=== PATIENT | male | born 1990 | race Caucasian/White ===

== ENCOUNTER → 2019-07-27 12:01 | Outpatient (BNVA) | payer OTHER, SELFPAY | PROVIDERS: Family Provider Nurse Practitioner; PCP Nurse Practitioner; Visit Provider Nurse Practitioner Family | DX: S50.01XA Contusion of right elbow, initial encounter (principal); X58.XXXA Exposure to other specified factors, initial encounter | CPT/HCPCS: 73080 ==

== ENCOUNTER → 2021-05-19 14:15 | Outpatient (BNVA) | payer OTHER, SELFPAY | PROVIDERS: Family Provider Nurse Practitioner; PCP Nurse Practitioner; Visit Provider Nurse Practitioner Family | DX: J02.9 Acute pharyngitis, unspecified (principal); M25.561 Pain in right knee; G89.29 Other chronic pain | CPT/HCPCS: 87071; 87880 ==

== ENCOUNTER 2021-06-01 10:53 | Outpatient (CLI) | payer OTHER, SELFPAY ==
--- NOTE | 2021-06-01 11:00 | MR_ITS ---
WS: [id number] MRI RIGHT KNEE NONCONTRAST TECHNIQUE: Axial PD, coronal PD fat sat, coronal PD, sagittal PD, and sagittal PD fat-sat images obta ined. CLINICAL INFORMATION: M25.561 - Pain in right knee COMPARISON: None. FINDINGS: Mild chronic thinning of the ACL with mucoid degeneration. No acute appearing ACL tears. Normal PCL. Distal quadriceps and patella tendons are intact. Slightly hypertrophic patella. No prepatellar soft tissue edema. Tiny horizontal tear involving the posterior horn medial meniscus extending to the catrina cular surface. Normal lateral meniscus. Normal medial and lateral collateral ligaments. Normal patella. Mild chondromalacia patella. No subch ondral edema. Normal medial and lateral patellar retinaculum. Normal popliteal fossa. MR/MR knee RT wo con* [id number] IMPRESSION: 1. Mild chronic thinning of the ACL with mucoid degeneration. No acute appeari ng ACL tears. Normal PCL. 2. Tiny horizontal tear involving the posterior horn medial meniscus extending to the articular surface. 3. Hypertrophic patella. Mild chondromalacia patella. No subchondral edema. 4. Normal medial and lateral collateral ligaments. 5. Normal bone marrow signal. No evidence of bony contusion. Outbridge grading: grade II: blister-like swelling/fraying of articular cartila ge extending to surface
== END 2021-06-01 10:54 | disposition home or self-care (01) ==
PROVIDERS: PCP Nurse Practitioner; Visit Provider Nurse Practitioner Family
DX: S83.241A Other tear of medial meniscus, current injury, right knee, initial encounter (principal); X58.XXXA Exposure to other specified factors, initial encounter; M22.41 Chondromalacia patellae, right knee
CPT/HCPCS: 73721

== ENCOUNTER 2021-07-08 10:22 | Day surgery (SDC) | payer OTHER, SELFPAY ==
[2021-07-06 14:49] VITALS: BMI 26.7
[2021-07-08] VITALS (9 sets, daily range): BP systolic 89–119; BP diastolic 46–78; PULSE 50–84; RESP 14–18; TEMP 36.2–36.7; O2SAT 92–98
[2021-07-08] MEDS: sodium chloride 0.9% 1,000 ML 30 ML IV (11:45)
--- NOTE | 2021-07-08 12:20 | ANES.PREANE2 ---
Pre-Anesthetic Assessment Height/Weight: Height 1.75 m Weight 82.1 kg Temp Pulse Resp BP Pulse Ox 97.5 F L 58 L 16 118/74 97 07/08/21 11:30 07/08/21 11:30 07/08/21 11:30 07/08/21 11:30 07/08/21 11:30 Preop Diagnosis: Medial lateral meniscal tear right knee Operation Date: 07/08/21 13:10 Proposed Procedures p right knee arthroscopy with meniscectomy 75654/s83.206a(Right) - Trevon Trujillo MD Familial anesthetic complications: None Was Beta Windy taken within 24 hours: N/A Was Clonidine taken within 24 hours: N/A Last intake: Intake Last Liquid Date 07/07/21 Last Liquid Time 22:00 Last Solid Date 07/07/21 Last Solid Time 17:30 Social Tobacco and No alcohol Exam alert, oriented x 3 and regular rate & rhythm Airway Submandibular: within normal limits Cervical ROM: within normal limits Mallampati: Class II Dentition: false Anesthetic Plan ASA status: 2 Anesthesia: General Medications/Allergies Home Medications Medication Instructions Recorded Confirmed Last Taken Type Aleve 220 mg PO BID PRN 07/08/21 07/08/21 07/07/21 07:00 History Allergies Allergy/AdvReac Type Severity Reaction Status Date / Time mushroom AdvReac rash Verified 06/29/21 09:00 Current Medications Generic Name Dose Route Start Last Admin Trade Name Freq PRN Reason Stop Dose Admin Sodium Chloride 1,000 mls @ 30 mls/hr 07/08/21 11:30 07/08/21 11:45 Sodium Chloride 0.9% IV 07/09/21 11:29 30 mls/hr .Q24H ALEJANDRA Administration PFSH Anesthesia Social History Smoking and tobacco status: current every day smoker Data Anesthesia Cardiac Studies: No Data to Display
--- NOTE | 2021-07-08 14:13 | W.PM.OPSUD ---
Surgery/Procedure H&P Update DATE OF PROCEDURE: July 08, 2021 DATE H&P PERFORMED: 06/30/21 H&P UPDATE INFORMATION: I have reviewed H&P completed within last 30 days PREOP DIAGNOSIS: Medial lateral meniscal tear right knee PLANNED PROCEDURE: Operation Date: 07/08/21 13:10 Proposed Procedures p right knee arthroscopy with meniscectomy 51325/s83.206a(Right) - Trevon Trujillo MD
[2021-07-08] MEDS: morphine 4 mg/mL SDV 1 mL 8 MG XX (15:04)
--- NOTE | 2021-07-08 15:20 | P.OP_ITS ---
Operative Report Date of procedure: July 08, 2021 Pre-op diagnosis: Preop Diagnosis Medial and lateral meniscal tear right knee Post-op diagnosis: Chondromalacia lateral facet patella Procedure done: Arthroscopic chondroplasty lateral facet patella Pathology: none sent Surgeon: Trevon Trujillo Anesthesia: General Estimated blood loss (mL): 2 Findings: The patient is knee was examined under anesthesia with no cruciate or collateral ligament identified and normal patellar tracking. Intra-articularly the medial and lateral menisci were noted to be intact and free of tearing. The femoral condyles and tibial plateau were free of chondromalacia. There were noted to be some flaps and fissures over the lateral facet of the patella corresponding with multiple small loose bodies. Condition: stable Disposition: PACU Procedure: Daniele was taken the operating room and given a general anesthesia. The knee was examined with no cruciate or collateral being laxity identified. He was given 2 g of Ancef. He is prepped and draped in the supine position with a tourniquet on the right thigh. The tourniquet was never inflated. A timeout was performed. The knee was entered through standard inferior medial and anterior lateral portal. The diagnostic portion of the arthroscopy was performed. The medial lateral menisci were carefully probed and no significant tearing identified. Chondral surfaces of the medial lateral compartment appeared to be healthy. The patella was carefully inspected where there was noted to be irregularity fibrillation and fraying over the lateral facet of the patella. An incisor shaver was introduced through the medial portal and light debridement accomplished of the patella. This was then followed with a [employer] probe utilizing the lateral facet cartilage. Ultimately the area of missing/debrided cartilage was thought to involve no more than 30% of the henning lar cartilage thickness of the lateral facet. The knee was irrigated with saline. Portals were closed with 3-0 Prolene. General dressings were applied. The patient was extubated and taken to recovery room in stable condition.
--- NOTE | 2021-07-08 16:55 | ANE.PACU2 ---
Inpatient post-anesthesia follow up: Airway intact: Yes Vital signs: Temperature 97.9 F Pulse Rate 58 Respiratory Rate 14 Blood Pressure 111/66 Pulse Oximetry 98 Oxygen Delivery Me thod Room Air Oxygen Flow Rate 6 Fraction of Inspir ed Oxygen Hydration adequate: Yes Nausea and vomiting: No Pain level: 2 Mental status: Baseline
--- NOTE | 2021-07-09 11:25 | W.PM.OPSUD ---
Surgery/Procedure H&P Update DATE OF PROCEDURE: July 08, 2021 DATE H&P PERFORMED: 06/30/21 H&P UPDATE INFORMATION: I have reviewed H&P completed within last 30 days PREOP DIAGNOSIS: Medial lateral meniscal tear right knee PLANNED PROCEDURE: Operation Date: 07/08/21 13:10 Proposed Procedures p right knee arthroscopy with meniscectomy 89012/s83.206a(Right) - Trevon Trujillo MD
== END 2021-07-08 16:55 | disposition home or self-care (01) ==
PROVIDERS: PCP Nurse Practitioner; Visit Provider Orthopaedic Surgery
PROC: (CPT 29870; principal; 2021-07-08 13:00)
DX: S83.281A Other tear of lateral meniscus, current injury, right knee, initial encounter (principal); X50.1XXA Overexertion from prolonged static or awkward postures, initial encounter; Y99.0 Civilian activity done for income or pay; M22.41 Chondromalacia patellae, right knee; F17.210 Nicotine dependence, cigarettes, uncomplicated
CPT/HCPCS: 29877; J0690; J1100; J2270; J2405; J2704; J2710; J3010; J3490; J7030

== ENCOUNTER 2024-04-06 18:39 | Emergency (ER) | payer OTHER, SELFPAY ==
[2024-04-06 18:55] VITALS: BP 111/71; PULSE 69; RESP 15; TEMP 36.5; O2SAT 98; BMI 28.0
[2024-04-06 19:35] LABS: Basophils # 0.1 10^3/uL (0.0-0.1); Basophils % 0.9 %; Eosinophils # 0.3 10^3/uL (0.0-0.8); Eosinophils % 2.9 %; Hematocrit 44.9 % (37-53); Lymphocytes # 3.6 10^3/uL (0.8-4.8); Mean Corpuscular Hemoglobin 30.3 pg (27-33); Mean Corpuscular Volume 91.8 fl (82-101); Mean Platelet Volume 10.1 fL (7.4-10.4); Monocytes # 0.7 10^3/uL (0.2-0.9); Monocytes % 7.5 %; Neutrophils # 4.81 10^3/uL (1.8-7.7); Neutrophils % 50.6 %; Nucleated Red Blood Cells % 0 %; Platelet Count 278 10^3/cmm (157-399); Red Blood Count 4.89 10^6/uL (3.85-5.65); White Blood Count 9.52 10^3/uL (3.29-11.43)
--- NOTE | 2024-04-06 19:48 | CTR_ITS ---
PROCEDURE INFORMATION: Exam: CT Abdomen And Pelvis With Contrast Exam date and time: 04/06/2024 8:07 PM Age: 34 years old Clinical indication: Abdominal pain; Patient HX: C/O epigastric pain x several days; Additional info: Abd pain TECHNIQUE: Imaging protocol: Computed tomography of the abdomen and pelvis with contrast. Radiation optimization: All CT scans at this facility use at least one of these dose optimization techniques: automated exposure control; mA and/or kV adjustment per patient size (includes targeted exams where dose is matched to clinical indication); or iterative reconstruction. Contrast material: OMNI 350; Contrast volume: 100 ml; Contrast route: INTRAVENOUS (IV); COMPARISON: No relevant prior studies available. RADIATION DOSE METRICS: Total DLP (mGy-cm): 630.93 FINDINGS: Lungs: Lung bases are clear. Liver: There is no focal abnormality within the liver. Gallbladder and biliary ducts: The gallbladder is normal. There is no common bile duct dilation. Pancreas: The pancreas is normal. Spleen: The spleen is normal. Adrenal glands: The adrenal glands are normal. Kidneys and ureters: The kidneys are normal. There is no evidence of hydronephrosis. There is no evidence of renal or ureteral calcifications. Stomach and bowel: Mild diverticulosis is present in the distal colon. There is no evidence of colitis/diverticulitis. There is no evidence of intestinal obstruction. Appendix: A normal appendix is identified. A normal appendix is identified. Intraperitoneal space: There is no evidence of free intraperitoneal fluid. Vasculature: The aorta is normal. Lymph nodes: There is no evidence of lymphadenopathy. Urinary bladder: Unremarkable as visualized. Reproductive: Unremarkable as visualized. Bones/joints: Unremarkable. No acute fracture. Soft tissues: Unremarkable. CT/CT abdomen pelvis w con* [id number] IMPRESSION: No acute findings.
--- NOTE | 2024-04-06 19:49 | W.ED.ABDPA2 ---
HPI - Abdominal Pain General: Chief Complaint: Abdominal Pain Stated Complaint: nausea Time Seen by Provider: 04/06/24 19:43 Source: patient Mode of arrival: ambulatory Limitations: no limitations History of Present Illness: 34-year-old male states that he has been having epigastric abdominal pain has been going on for last 5 to 6 days. He states the pain is sharp in nature rates today 4 out of 10 currently and denies any worse improved factors he has had some slight nausea denies any vomiting denies diarrhea. Associated Symptoms: Reports nausea; Denies chills, diarrhea, fever(s) and vomiting Related Data Home Medications Medication Instructions Recorded Confirmed Aleve 220 mg PO BID PRN Pain, Mild 07/08/21 08/10/21 Previous Rx's Medication Instructions Recorded hydrocodone 5 mg-acetaminophen 325 1 tab PO Q4H #30 tabs 07/08/21 mg tablet ondansetron 4 mg disintegrating 4 mg PO Q6H PRN nausea and 04/06/24 tablet vomiting #14 tabs pantoprazole 40 mg tablet,delayed 40 mg PO DAILY #60 tabs 04/06/24 release (Protonix) Allergies Allergy/AdvReac Type Severity Reaction Status Date / Time mushroom AdvReac rash Verified 07/20/21 09:46 Review of Systems Const: Denies: fever(s), chills, body aches or change in appetite ENMT: Denies: throat pain or dental pain Card: Denies: chest pain Resp: Denies: dyspnea GI: Reports: abdominal pain and nausea; Denies: vomiting or diarrhea Musc: Denies: neck pain or back pain Skin/Breast: Denies: rash Neuro: Denies: headache(s) [facility] PFSH: Social History Smoking and tobacco/nicotine status: current every day tobacco/nicotine user Physical Exam Const: COMMON NORMALS: no acute distress, patient oriented x3 and healthy appearing HENMT: COMMON NORMALS: normocephalic and atraumatic HEAD & SCALP: normocephalic and atraumatic Neck/C-Spine: COMMON NORMALS: full ROM and supple Chest: COMMONS NORMALS: normal inspection of the chest Resp: COMMON NORMALS: normal respiratory effort, No retractions, No use of accessory muscles and clear to auscultation bilaterally AUSCULTATION: clear to auscultation bilaterally Cardio: COMMON NORMALS: regular rate, regular rhythm and No murmurs present (Cardio) RATE: regular rate RHYTHM: regular rhythm GI: COMMON NORMALS: Normal to inspection, nondistended, normoactive bowel sounds present, Soft to palpation and no masses PALPATION: Yes Soft to palpation OTHER: epigastric tenderness Extremity: COMMON NORMALS: normal to inspection and full ROM Neuro: COMMON NORMALS: patient oriented x3, moves all extremities and no focal motor deficits Psych: COMMON NORMALS: mental status grossly normal, Normal thought process present and cooperative THOUGHT PROCESS: Normal thought process present Skin: COMMON NORMALS: no rashes or lesions noted and no wounds GENERAL SKIN EXAM: no rashes or lesions noted Course Vital Signs: Vital signs: Vital Signs Temperature 97.7 F 04/06/24 18:55 Pulse Rate 69 04/06/24 18:55 Respiratory Rate 18 04/06/24 20:00 Blood Pressure 111/71 04/06/24 18:55 Pulse Oximetry 98 04/06/24 18:55 Oxygen Delivery Me thod Room Air 04/06/24 18:55 MDM - Abdominal Pain Medical Decision Making Patient presents here with abdominal pain he feels much improved here is likely gastritis blood work CT scan are normal exam at discharge is benign he stable for discharge we will give him follow-up with surgery will prescribe him Protonix he is return if worsening Medical Records I reviewed the patient's medical records. Lab Data I reviewed the patient's lab results. 04/06/24 19:26 04/06/24 19:26 Labs/Radiology: Radiology Impressions Abdomen/Pelvis CT 04/06/24 19:48 IMPRESSION: No acute findings. Laboratory Results WBC 9.52 10^3/uL (3.29-11.43) 04/06/24 19: RBC 4.89 10^6/uL (3.85-5.65) 04/06/24 19:26 Hgb 14.80 g/dL (11.27-16.99) 04/06/24 19:26 Hct 44.9 % (37-53) 04/06/24 19: MCV 91.8 fl (82-101) 04/06/24 19: MCH 30.3 pg (27-33) 04/06/24 19: MCHC 33.0 g/dL (30-55) 04/06/24 19: RDW 13.0 % (12.1-15.1) 04/06/24 19: Plt Count 278 10^3/cmm (157-399) 04/06/24 19: MPV 10.1 fL (7.4-10.4) 04/06/24 19: Neut % (Auto) 50.6 % 04/06/24: Lymph % (Auto) 38.0 % 04/06/24: [place] % (Auto) 7.5 % 04/06/24: Eos % (Auto) 2.9 % 04/06/24: Baso % (Auto) 0.9 % 04/06/24: Neut # (Auto) 4.81 10^3/uL (1.8-7.7) 04/06/24: Lymph # (Auto) 3.6 10^3/uL (0.8-4.8) 04/06/24: [place] # (Auto) 0.7 10^3/uL (0.2-0.9) 04/06/24 19: Eos # (Auto) 0.3 10^3/uL (0.0-0.8) 04/06/24: Baso # (Auto) 0.1 10^3/uL (0.0-0.1) 04/06/24: Nucleated RBC % (auto) 0 % 04/06/24: Nucleated RBCs # 0.0 /100WBC 04/06/24 19: Sodium 138 mmol/L (136-145) 04/06/24 19: Potassium 3.6 mmol/L (3.5-5.1) 04/06/24 19: Chloride 102 mmol/L (98-107) 04/06/24 19: Carbon Dioxide 24 mmol/L (22-29) 04/06/24: Anion Gap 15.6 (5-19) 04/06/24 19: BUN 10 mg/dL (6-20) 04/06/24 19: Creatinine 0.8 mg/dL (0.7-1.2) 04/06/24 19: GFR Calculation 110.0 mL/min (90-130) 04/06/24 19:26 Glucose 68 mg/dL (65-115) 04/06/24 19:26 Calculated Osmolality 283 mOsm/kg (285-295) L 04/06/24 19:26 Calcium 9.3 mg/dL (8.5-10.5) 04/06/24 19:26 Total Bilirubin 0.7 mg/dL (0.15-1.2) 04/06/24 19:26 AST 17 U/L (0-40) 04/06/24 19:26 ALT 16 U/L (0-41) 04/06/24 19:26 Alkaline Phosphatase 65 U/L (40-130) 04/06/24 19:26 Total Protein 6.6 g/dL (6.6-8.7) 04/06/24 19:26 Albumin 4.2 g/dL (3.5-5.2) 04/06/24 19:26 Globulin 2.4 g/dL (1.3-4.6) 04/06/24 19:26 Lipase 35 U/L (13-60) 04/06/24 19:26 All radiology interpretation(s) finalized by discharge Discharge Plan Discharge Patient Disposition: Home Clinical Impression: Abdominal pain Condition: Stable Prescriptions: New pantoprazole [Protonix] 40 mg tablet,delayed release (DR/EC) 40 mg PO DAILY Qty: 60 0RF ondansetron 4 mg tablet,disintegrating 4 mg PO Q6H PRN (Reason: nausea and vomiting) Qty: 14 0RF No Action Aleve 220 mg PO BID PRN (Reason: Pain, Mild) hydrocodone-acetaminophen 5-325 mg tablet 1 tab PO Q4H Qty: 30 0RF Discharge Orders: Discharge ED (Routine); Ordered 04/06/24 Ordered By: Iris Thompson Referrals: Brant Doyle MD [Physician] - 4-7 days Yuni Landry FNP [Primary Care Provider] - Discharge Diet: Advance as tolerated Discharge Activity: Resume usual activity Patient Instructions: Abdominal Pain (ED) Coding Level of Care Code ED Behavioral Geneticist for Tae Breaux
[2024-04-06 19:53] LABS: Alanine Aminotransferase 16 U/L (0-41); Albumin Level 4.2 g/dL (3.5-5.2); Alkaline Phosphatase 65 U/L (40-130); Anion Gap 15.6 (5-19); Aspartate Amino Transferase 17 U/L (0-40); Blood Urea Nitrogen 10 mg/dL (6-20); Calcium 9.3 mg/dL (8.5-10.5); Carbon Dioxide 24 mmol/L (22-29); Chloride 102 mmol/L (98-107); Creatinine Clr Calc Pharmacy 140.1699; Globulin 2.4 g/dL (1.3-4.6); Glucose 68 mg/dL (65-115); Lipase 35 U/L (13-60); Osmolality Calculated 283 mOsm/kg (285-295); Potassium 3.6 mmol/L (3.5-5.1); Sodium 138 mmol/L (136-145); Total Bilirubin 0.7 mg/dL (0.15-1.2); Total Protein 6.6 g/dL (6.6-8.7)
[2024-04-06 20:00] VITALS: RESP 18
[2024-04-06] MEDS: ondansetron 2 mg/ML SDV 2 mL 4 MG IVP (20:00)
[2024-04-06] MEDS: morphine 4 mg/mL SDV 1 mL IVP (20:00)
[2024-04-06] MEDS: iohexol 350 mg/mL 500 mL Btl (per mL) IV (20:10)
[2024-04-06 21:10] VITALS: BP 110/63; PULSE 55; O2SAT 96
[2024-04-06 21:23] VITALS: BP 110/63; PULSE 50; O2SAT 96
--- NOTE | 2024-04-08 09:06 | DCPLANNER ---
message sent to General surgery for follow up
== END 2024-04-06 21:25 | disposition home or self-care (01) ==
PROVIDERS: Emergency Provider Emergency Medicine; PCP Nurse Practitioner Family
DX: R10.13 Epigastric pain (principal); Z72.0 Tobacco use
CPT/HCPCS: 36415; 74177; 80053; 83690; 85025; 96374; 96375; 99285; J2270; J2405

== ENCOUNTER 2024-04-25 09:36 | Outpatient (CLI) | payer OTHER, SELFPAY ==
--- NOTE | 2024-04-25 09:30 | US_ITS ---
WS: [id number] RIGHT UPPER QUADRANT ULTRASOUND HISTORY: abdominal pain COMPARISON: None available. Liver: 12.9 cm in length. Normal size liver and echogenicity. No bile duct dilatation or mass. Portal Vein: Normal hepatopetal flow with monophasic waveform. Gallbladder: Normally distended gallbladder with no stones or wall thickening. CBD: Common bile duct is not identified or measured. There is no intrahepatic duct dilatation. Pancreas: Completely obscured by bowel gas. Right kidney: 11.2 cm in length. Normal size and echogenicity. No hydronephrosis or mass. Aorta and IVC: Unremarkable abdominal aorta and IVC. No ascites. US/US gall bladder [id number] IMPRESSION: 1. Normal gallbladder. 2. Common bile duct was not identified or measured. There is no intrahepatic d uct dilatation. 3. Pancreas completely obscured by bowel gas. 4. Normal liver.
== END 2024-04-25 09:37 | disposition home or self-care (01) ==
PROVIDERS: PCP Nurse Practitioner Family; Visit Provider Surgery
DX: R10.9 Unspecified abdominal pain (principal)
CPT/HCPCS: 76705

== ENCOUNTER 2024-05-03 08:02 | Outpatient (CLI) | payer OTHER, SELFPAY ==
--- NOTE | 2024-05-03 08:00 | NM_ITS ---
WS: [id number] NUCLEAR MEDICINE HIDA SCAN CLINICAL INFORMATION: abdominal pain TECHNIQUE: Following intravenous administration of 8.2 mCi of technetium 99m mebrofenin, images of the abdomen were obtained over the course of 60 minutes. Next, gallbladder ejection fraction was determined by obtaining preprandial and one-hour postprandial images of the gallbladder following oral ingestion of Ensure. FINDINGS: Normal hepatic uptake. Normal hepatic excretion. Gallbladder is visualized by 10 minutes. No evidence of acute cholecystitis. Normal common bile duct and small bowel activity. Gallbladder ejection fraction 38% within normal limits but at the lower end of the range. NM/NM hepatobiliary w phar* [id number] IMPRESSION: 1. No evidence of acute cholecystitis. 2. Gallbladder ejection fraction 38% within normal limits but at the lower end of the range. Recommend correlation for symptoms of gallbladder dysfunction
== END 2024-05-03 08:03 | disposition home or self-care (01) ==
LOC: RAD 08:02
PROVIDERS: PCP Nurse Practitioner Family; Visit Provider Surgery
DX: R10.9 Unspecified abdominal pain (principal); R93.3 Abnormal findings on diagnostic imaging of other parts of digestive tract
CPT/HCPCS: 78227; A9537